=== PATIENT | male | born 1970 | race Caucasian/White ===

== ENCOUNTER 2021-10-20 16:26 | Outpatient (REF) | payer OTHER, SELFPAY ==
[2021-10-20 20:15] LABS: Anion Gap 8.4 mmol/L (3-11); BUN 22 mg/dL (7-18); CO2 27.6 mmol/L (21.0-32.0); CREATININE 0.9 mg/dL (0.70-1.30); Calcium 8.7 mg/dL (8.5-10.1); Chloride 104 mmol/L (98-107); Glucose 115 mg/dL (74-106); Potassium 3.9 mmol/L (3.5-5.1); Sodium 140 mmol/L (136-145)
[2021-10-20 20:22] LABS: Hemoglobin A1C 6.1 % (<5.7)
== END 2021-10-20 16:27 | disposition home or self-care (01) ==
LOC: NCHCN 16:26
PROVIDERS: PCP Physician Assistant Medical; Visit Provider Physician Assistant
DX: R73.03 Prediabetes (principal)
CPT/HCPCS: 80048; 83036

== ENCOUNTER 2024-09-25 17:46 | Outpatient (REF) | payer OTHER, SELFPAY ==
[2024-09-25 18:53] LABS: Abs Immature Grans 0.02 10^3/uL (0.0-0.06); Absolute Basophil Count 0.06 10^3/uL (0.0-0.2); Absolute Eosinophil Count 0.17 10^3/uL (0.0-0.7); Absolute Lymphocyte Count 2.17 10^3/uL (1.2-3.4); Absolute Monocyte Count 0.75 10^3/uL (0.1-0.8); Absolute Neutrophil Count 4.51 10^3/uL (1.2-6.7); Basophils % 0.8 %; Eosinophils % 2.2 %; HCT 41.4 % (40.0-50.0); HGB 13.8 g/dL (13.5-17.5); Immature Grans % 0.3 %; Lymphocytes % 28.3 %; MCH 29.5 pg (27.0-33.0); MCHC 33.3 % (32.0-36.0); MCV 89 fL (80-95); Monocytes % 9.8 %; Neutrophils % 58.6 %; Platelet Count 288 10^3/uL (130-400); RBC 4.68 10^6/uL (4.36-5.78); RDW 12.6 % (11.8-14.1); RDW-SD 40.8 fL; WBC 7.68 10^3/uL (4.4-10.8)
[2024-09-25 19:14] LABS: ALT 37 U/L (16-63); AST 27 U/L (15-37); Albumin 3.9 g/dL (3.4-5.0); Anion Gap 9.6 mmol/L (3-11); BUN 21 mg/dL (7-18); Bilirubin, Total 0.33 mg/dL (0.2-1.0); CO2 26.4 mmol/L (21.0-32.0); CREATININE 0.9 mg/dL (0.70-1.30); Chloride 102 mmol/L (98-107); Estimated GFR 100.86 (mL/min/1.73m2); Glucose 94 mg/dL (74-106); Magnesium 2.2 mg/dL (1.8-2.4); Potassium 4.1 mmol/L (3.5-5.1); Sodium 138 mmol/L (136-145); TSH (W/Ref FT4) 4.16 uIU/mL (0.36-3.74); Total Protein 7.5 g/dL (6.4-8.2)
[2024-09-25 19:25] LABS: Alkaline Phosphatase 89 U/L (46-116)
[2024-09-25 19:46] LABS: FREE T4 0.94 ng/dL (0.76-1.46)
== END 2024-09-25 17:47 | disposition home or self-care (01) ==
LOC: NCHCN 17:46
PROVIDERS: PCP Physician Assistant Medical; Visit Provider Physician Assistant
DX: I49.3 Ventricular premature depolarization (principal)
CPT/HCPCS: 80053; 83735; 84439; 84443; 85025

== ENCOUNTER 2024-11-20 22:14 | Outpatient (REF) | payer OTHER, SELFPAY ==
[2024-11-20 19:28] LABS: FREE T4 0.84 ng/dL (0.76-1.46)
== END 2024-11-20 22:15 | disposition home or self-care (01) ==
LOC: NCHCN 22:14
PROVIDERS: PCP Physician Assistant Medical; Visit Provider Physician Assistant
DX: R94.6 Abnormal results of thyroid function studies (principal)
CPT/HCPCS: 84439; 84443